=== PATIENT | female | born 1985 | race African-American/Black ===

== ENCOUNTER 2017-06-06 12:29 | Emergency (ER) | payer MEDICAID, SELFPAY ==
[2017-06-06 13:29] LABS: Pregnancy Test - Urine (BHCG) Negative (Negative); Pregu Control Background? CLEAR/WHITE (CLR/WHITE); Pregu Control Bar Appear? YES (CONTROL BAR)
[2017-06-06] MEDS ORDERED: Metoclopramide HCl 10 MG/2 ML VIAL ONE (13:38)
--- NOTE | 2017-06-06 14:04 | CT ---
CT BRAIN NONCONTRAST: Date: 06/06/17 HISTORY: 31-year-old female with headache. FINDINGS: The ventricles are normal in size and configuration. There is no midline shift or any other mass eff ect. There is no evidence of acute intracranial hemorrhage, large cortical infarct, or extraaxial fl uid collection. The martínez matter /white matter differentiation is maintained. The calvarium is intac t. The tympanomastoid cavities, and the upper portions of the paranasal sinuses included in these im ages, are grossly clear. IMPRESSION: Normal. jn [] POS: [facility]
[2017-06-06] MEDS ORDERED: Ketorolac Tromethamine 30 MG/ML VIAL ONE (14:25)
== END 2017-06-06 14:49 | disposition home or self-care (01) ==
LOC: SCSER 12:29
DX: R51 Headache (principal); F17.210 Nicotine dependence, cigarettes, uncomplicated
CPT/HCPCS: 70450; 81025; 96365; 96375; J1885; J2765